=== PATIENT | female | born 1930 | race Caucasian/White ===

== ENCOUNTER 2017-01-06 13:40 | Emergency (ER) | payer MEDICARE ==
[2017-01-06] MEDS ORDERED: DIPHTH,PERTUSS(ACELL),TET VAC 0.5 ML VIAL IM ONE ×2 (14:04→14:47)
--- NOTE | 2017-01-06 15:00 | ERNOTE ---
Upper Extremity HPI - Narrative Date of Service: 01/06/17 - General Extremities Pain Location: elbow: left Time Seen by Provider: 01/06/17 13:47 Source: patient Exam Limitations: no limitations - Immun/Allergies/Home Medications Immunizations: IMMUNIZATION HX Immunizations Up to Date Yes History of Influenza Vaccine Yes Hx Pneumococcal Vaccination Yes Allergies/Adverse Reactions: Allergies Allergy/AdvReac Type Severity Reaction Status Date / Time acetaminophen Allergy Verified 01/06/17 13:52 [From Darvocet-N 100] ciprofloxacin [From Cipro] Allergy Verified 01/06/17 13:52 ciprofloxacin HCl Allergy Verified 01/06/17 13:52 [From Cipro] propoxyphene napsylate Allergy Verified 01/06/17 13:52 [From Darvocet-N 100] quinidine Allergy Verified 01/06/17 13:52 Sulfa (Sulfonamide Allergy Verified 01/06/17 13:52 Antibiotics) Home Medications: HOME MEDICATIONS Alendronate Sodium 35 mg PO Q7D 10/07/15 [Last Taken 10/05/15] Ascorbic Acid [Vitamin C] 500 mg PO DAILY 10/07/15 [Last Taken Unknown] Aspirin 81 mg PO DAILY 10/07/15 [Last Taken Unknown] Atorvastatin Calcium [Lipitor] 10 mg PO DAILY 10/07/15 [Last Taken Unknown] Calcium Carbonate/Vitamin D3 [Caltrate 600 Plus D3 Tablet] 1 each PO BID [Last Taken Unknown] Clobetasol Propionate/Emoll [Clobetasol Emollient 0.05% Crm] 1 appl TP BID 10/06 [Last Taken Unknown] Estradiol [Estrace] 42.5 gm VG Q7D 10/07/15 [Last Taken 10/02/15] L.acidoph,Paracasei, B.lactis [Probiotic] 1 each PO DAILY 10/07/15 [Last Taken Unknown] Multivitamin [Poly-Vitamin] 1 each PO DAILY 10/07/15 [Last Taken Unknown] Olmesartan Medoxomil [Benicar] 40 mg PO DAILY 10/07/15 [Last Taken Unknown] Methenamine Hippurate 01/06/17 [Last Taken Unknown] - History of Present Illness Narrative: patient presents for left elbow injury. She relates that she got up and tripped on the leg of a chair. She fell forward primatily landing on her left elbow but also her lef tknee and hit the right front of her head. No LOC. No syncope. Pain primarily left elbow with swelling. Some mild anterior left knee pain and mild FRANKS. No neck or back pain. No N/T/W. pain mild right now. No CP or SOB. No abdominal injury. No hip pain. Occurred: just prior to arrival Location of Incident: home Severity: mild Method of Injury: Reports: fell Reason for Fall: Reports: tripped Loss of Consciousness: Reports: no loss of consciousness Modifying Factors - (Improves): Reports: rest Associated Symptoms: Denies: tingling, weakness, numbness distally, loss of feeling, loss of power (lt arm) Other Injuries: Reports: head. Denies: face, neck, back, chest, abdomen Prior Treament: Denies: recently seen Review of Systems - Review of Systems Constitutional: Absent: fever Respiratory: Absent: shortness of breath Cardiology: Absent: chest pain Gastrointestinal/Abdominal: Absent: abdominal pain Neurological: Absent: weakness - Patient's Past Medical History Patient History - Medical: Osteoarthritis, Osteoporosis, UTI'S, Other Patient History - Cardiac/Respiratory: Hypertension, Hyperlipidemia Patient History - Cancer: No Hx of Cancer Patient History - Surgical Procedures: Appendectomy, Hysterectomy, T & A - Family History Brother Family History - Cardiac/Respiratory: Angina Mother Family History - Medical: Diabetes Type 2 Family History - Cardiac/Respiratory: Myocardial Infarction Sister Family History - Cardiac/Respiratory: Myocardial Infarction - Social History Living Situations: home Psych History: No pertinent hx Smoking Status: Former smoker - Immunizations Immunizations Up to Date: Yes Hx Pneumococcal Vaccination: Yes History of Influenza Vaccine: Yes Physical Exam - Physical Exam General Appearance: Present: alert, no apparent distress Head Exam: Present: other - hematoma right frontal, fairly large.. Absent: Kincaid's Sign, raccoon eyes Eye Exam: Normal inspection: bilateral, PERRL: bilateral Ears, Nose, Throat: Present: normal ENT inspection, other - no facial injury Neck: Present: normal inspection, nontender, other - no posterior C-spine tenderness. no T/L spine tenderness. Absent: tender posterior midline Respiratory: Present: no respiratory distress, normal breath sounds, lungs clear Cardiovascular/Chest: Present: regular rate, rhythm, normal peripheral pulses, other - strong pulses distal to injury Gastrointestinal/Abdominal: Present: normal bowel sounds, nondistended, soft. Absent: tenderness Back Exam: Present: normal inspection, no vertebral tenderness Extremity Exam: Present: other - Left olecranon swelling. Minimal abrasion. No laceration. Tenderness olecranon. NNo shoulder or wrist tendenress. ROM within normal limits. No dislocation or radial head tenderness. Left knee abrasion but full ROM. No clear patellar tendon injury. No hip or ankle tenderness. Neurological Exam: Present: alert, normal mood/affect, no motor/sensory deficits Skin Exam: Present: normal color, warm/dry ED Progress - Vital Signs Patient's Vital Signs:: I have reviewed the patient's vital signs. Vital Signs: Vital Signs 01/06/17 13:48 Temperature 36.9 C Pulse Rate 89 Respiratory 18 Rate Blood Pressure 180/100 O2 Sat by Pulse 93 Oximetry - X-Ray X-Ray #1 X-Ray: elbow Interpretation: Interp. by me X-ray Comments: I reviewed official radiology report X-Ray #2 X-Ray: knee Interpretation: Interp. by me X-ray Comments: I reviewed official radiology report - CT/Ultrasound CT/Ultrasound Narrative: I reviewed official radiology HCT report - Progress/Reassessment Chief Complaint: Upper Extremity Injury/Problem Progress Note-Subjective: 01/06/17 14:56 I discussed results with the patient. Sling left elbow. F/U appt with ortho made for 3 days. No compartment syndrome, no neuro vascular deficit. no other life threats identified. I discussed warning signs and reasons to return as well as the need for close f/u. 01/06/17 15:00 No hip tenderness identified. Gait stable. Departure Clinical Impression: Fall, Head injury, Elbow injury, Knee injury - Departure Disposition: Home self-care Condition: Stable Instructions: Musculoskeletal Pain Additional Instructions: Rest. Ice. Sling as directed. You have an appointment with Orthopedics on January 09 at 2:30pm. Return for increased pain, signs of infection, numbness , tingling, weakness or if your condition worsens or changes in any way. Referrals: Melonie Sims MD [Primary Care Provider] -
[2017-01-06 15:15] VITALS: BP 189/96
== END 2017-01-06 15:00 | disposition home or self-care (01) ==
LOC: ER 13:40
DX: S09.90XA Unspecified injury of head, initial encounter (principal); S59.902A Unspecified injury of left elbow, initial encounter; S89.92XA Unspecified injury of left lower leg, initial encounter; W18.09XA Striking against other object with subsequent fall, initial encounter; Y92.009 Unspecified place in unspecified non-institutional (private) residence as the place of occurrence of the external cause; M19.90 Unspecified osteoarthritis, unspecified site; I10 Essential (primary) hypertension; E78.5 Hyperlipidemia, unspecified; Z23 Encounter for immunization; S80.212A Abrasion, left knee, initial encounter

== ENCOUNTER 2017-11-21 06:26 | Inpatient (IN) | payer MEDICARE ==
--- NOTE | 2017-11-01 10:03 | ANES ---
Anesthesia Pre Procedure Eval HOME MEDICATIONS Ascorbic Acid [Vitamin C] 500 mg PO DAILY 10/07/15 [Last Taken Unknown] Aspirin 81 mg PO DAILY 10/07/15 [Last Taken Unknown] Atorvastatin Calcium [Lipitor] 10 mg PO DAILY 10/07/15 [Last Taken Unknown] L.acidoph,Paracasei, B.lactis [Probiotic] 1 ea PO DAILY 10/07/15 [Last Taken Unknown] acetaminophen 500 mg tablet 500 mg PO Q6H PRN 10/06/17 [Last Taken Unknown] alendronate 35 mg tablet 35 mg PO QWEEK tab 10/06/17 [Last Taken Unknown] estradiol 0.01% (0.1 mg/gram) vaginal cream 1 g VG QWEEK 10/06/17 [Last Taken Unknown] methenamine hippurate 1 gram tablet 1 g PO BID 10/06/17 [Last Taken Unknown] multivitamin tablet 1 tab PO DAILY 10/06/17 [Last Taken Unknown] olmesartan 40 mg tablet 40 mg PO DAILY 10/06/17 [Last Taken Unknown] Allergies/Adverse Reactions: Allergies Allergy/AdvReac Type Severity Reaction Status Date / Time sulfamethoxazole Allergy Unknown hives Verified 11/01/17 08:59 [From Bactrim] facial swelling Tetracyclines Allergy Unknown GI upset Verified 11/01/17 08:59 ciprofloxacin [From Cipro] Allergy Verified 11/01/17 08:59 ciprofloxacin HCl Allergy Verified 11/01/17 08:59 [From Cipro] hydrocodone [From Vicodin] Allergy heart races Verified 11/01/17 08:59 propoxyphene napsylate Allergy Verified 11/01/17 08:59 [From Darvocet-N 100] quinidine Allergy Verified 11/01/17 08:59 levofloxacin [From Levaquin] AdvReac Unknown nausea Verified 11/01/17 08:59 nitrofurantoin AdvReac Unknown stomach Verified 11/01/17 08:59 upset - Planned Procedure Planned Procedure: Left Total Knee Arthroplasty Medication List Reviewed:: Yes Allergies Verified: Yes Medical History (Last Reviewed 11/01/17 @ 09:58 by Long Kerns CRNA) Does not use tobacco Lives with spouse No history of alcohol use Mitral valve prolapse Onset Date: Unknown Colitis, chronic, ulcerative Onset Date: ~1978 Eczema Onset Date: Unknown Essential hypertension Onset Date: ~09/11/12 Hyperlipidemia Onset Date: ~12/18/13 Knee pain Onset Date: Unknown Osteoarthritis, knee Onset Date: Unknown Osteoporosis Onset Date: Unknown Spinal stenosis Onset Date: ~2008 Cystocele Onset Date: Unknown Kidney stone Onset Date: Unknown Left elbow pain Onset Date: Unknown Olecranon bursitis of left elbow Onset Date: ~01/06/17 Unspecified genital prolapse Onset Date: ~07/24/15 Urinary tract infection Onset Date: ~04/03/13 Surgical History (Last Reviewed 11/01/17 @ 10:00 by Long Kerns CRNA) History of appendectomy Onset Date: ~10/01/93 History of bladder surgery Onset Date: ~2003 History of colonoscopy Onset Date: Unknown History of cystoscopy Onset Date: ~05/28/13 History of sigmoidoscopy Onset Date: Unknown Hx of tonsillectomy Onset Date: Unknown S/P ARISTIDES-BSO (total abdominal hysterectomy and bilateral salpingo-oophorectomy) Onset Date: ~10/01/93 Family History (Last Reviewed 11/01/17 @ 10:00 by Long Kerns CRNA) Brother Heart disease Daughter Alive and well Father Multiple sclerosis Mother Diabetes Heart disease Dementia Sister Cancer Multiple sclerosis Son Alive and well - Family Anesthesia History Family History:: no untoward family reactions to anesthesia, no familial bleeding tendencies, no family history of clotting disorders, no family history of premature - Airway/Neck/Teeth Within Normal Limits:: Yes Teeth Condition: Intact Neck Exam: non-tender, full range of motion, normal alignment Mallampatti Score: 2 Thyromental (T-M) distance: > 6 cm Mandibulo Hyoid distance: > 3 cm - Respiratory Respiratory: chest non-tender, lungs clear, normal breath sounds, no respiratory distress Smoking Status: Former smoker Sleep Apnea currently treated: No Sleep Apnea by current assessment: No - Cardiovascular Patient History - Cardiac/Respiratory: Hypertension, Hyperlipidemia Tolerates Activity: Fair Heart Sounds: S1 & S2, Irregular, Murmur - Anesthesia Assessment and Plan ASA Class: PS, III Anesthesia Type Plan: Block - Adductor canal block for post op pain relief, Spinal Planned difficult intubation/equipment available: No
[~2017-11-21 06:26] MED LIST: ROPIVACAINE HCL/PF 100 MG, EPINEPHrine 0.2 MG, KETOROLAC TROMETHAMINE 30 MG in NORMAL S... IJ PRN; TRANEXAMIC ACID 1,000 MG in NORMAL SALINE 100 ML IV PRN; ceFAZolin SODIUM 1 GM VIAL IV PRN
[2017-11-21] MEDS: RINGER'S SOLUTION,LACTATED 1,000 ML IV PRN ×2 (07:06→09:00)
[2017-11-21] MEDS ORDERED: MAG HYDROX/ALUMINUM HYD/SIMETH 30 ML UDC PO PRN (10:16)
[2017-11-21] MEDS ORDERED: ONDANSETRON HCL/PF 2 MG/ML VIAL IV PRN (10:16)
[2017-11-21] MEDS ORDERED: MAGNESIUM HYDROXIDE 30 ML UDC PO PRN (10:16)
[2017-11-21] MEDS ORDERED: MORPHINE SULFATE 2 MG/ML DISP.SYRIN IV PRN (10:16)
[2017-11-21] MEDS ORDERED: oxyCODONE HCL/ACETAMINOPHEN 1 TAB TABLET PO PRN (10:18)
[2017-11-21] MEDS ORDERED: NORMAL SALINE 1,000 ML IV PRN (10:19)
--- NOTE | 2017-11-21 10:21 | ANES ---
Anesthesia Procedure Note Procedure Note: ANESTHESIA PROCEDURE NOTE Date of Procedure: 11/21/2017 Time of procedure: 10 04. Performed by: ZACHARIAH Anderson CRNA, MSN Body Worker: Luana Ling RN. Preprocedure diagnosis: Total knee arthroplasty. Post procedure diagnosis: Same. Procedure: Left Adductor Canal Block. Indications: Post left total knee arthroplasty pain relief. Findings: See below. Details of the procedure: The patient was brought to OR #4 and placed in supine position. The patient's left femoral area to the knee was prepped with chlorhexidine and using ultrasound guidance the left femoral artery and nerve was identified and then followed to the level of the adductor canal. Lidocaine 1% was infiltrated to the skin of the intended injection site. Under ultrasound guidance the saphenous nerve was approached with visualization of a 4 inch shielded block needle. Once saphenous nerve was identified with proximity to the needle tip, the saphenous nerve was surrounded with 30 mL bupivacaine 0.5% with 1-200,000 epinephrine. Please see radiology/ultrasound report for details and retained images of the procedure. EBL: 0 Fluids: N/A. Specimen: N/A. Post procedure condition: The patient tolerated the procedure well. No complications were noted. Thank you for this consultation. Long Kerns CRNA, ARNP, MSN
--- NOTE | 2017-11-21 10:22 | ANES ---
Post Anesthesia Discharge - Transfer of Care Transfer of Care handoff given to nurse: Yes - Discharge from PACU Discharge from PACU when meets criteria: Yes - Alert and comfortable.
--- NOTE | 2017-11-21 10:25 | OR ---
Operative Report - Dictated Report Narrative: Date: 11/21/2017 Preoperative diagnosis: Left knee degenerative joint disease. Postoperative diagnosis: Left knee degenerative joint disease. Procedure: Left total knee arthroplasty. Surgeon: Jacek Pacheco M.D. Continuous Dryout Operator Helper: Korey Dhillon PA-C Anesthesia: Spinal with regional block and local periarticular joint injection. Complications: None Specimens: Bone for disposal. Estimated blood loss: Minimal. Tourniquet time: 67 Minutes at 275 millimeters of mercury. Retained implants: Depuy Attune size 7 standard lugged cemented posterior stabilized femoral component. Size 5 fixed-bearing cemented tibial platform. Size 5 by 10 millimeter posterior stabilized cross-linked tibial insert. 38 millimeter medialized patella button. Indications: Jud is a 87-year-old healthy female. This patient was followed in my clinic for period of time with significant complaints of left knee pain consistent with arthritic changes. They had failed conservative measures including but not limited to activity modification, passage of time, medications , and other conservative measures. Patient wished to proceed with surgical treatment. The risks, benefits, and alternatives were discussed in clinic. The risks of , blood clots, bleeding, infection, nerve/tendon blood vessel / injury, malposition of components, intraoperative fracture, postoperative limited range of motion, persistent pain, failure of components, and need for additional procedures. Patient wished to proceed consent was obtained after answering all questions. Procedure: After marking the correct extremity on the floor, the patient was taken to the operating room. A timeout was performed. IV antibiotics consisting of 1 g of Ancef was administered prior to the procedure. A regional followed by spinal anesthetic was induced by anesthesia. on the operative table with all bony prominences well-padded. Garcia catheter was placed and a bump was placed under the operative side buttock. SCDs and DANIELLA hose were utilized on the nonoperative leg. A well-padded tourniquet was applied to the operative thigh. The operative leg was then pre-scrubbed with alcohol prepped and draped in a standard sterile fashion. After exsanguinating the extremity with an Esmarch bandage, the tourniquet was inflated. After marking out the anterior knee for standard incision centered over the patella, the skin was incised and dissected down to the joint retinaculum. The joint retinaculum was marked out as well as the horizontal axis of the patella, and a standard medial parapatellar arthrotomy was then made. The most proximal aspect of the quadriceps tendon and the patella tendon insertion were protected from release. A partial synovectomy was performed as well as a resection of the infrapatellar fat pad. The distal femoral fat pad proximal to the trochlea was also resected using cautery. The soft tissues were elevated off the medial aspect of the proximal tibia using a Guerra elevator ensuring that we did not transect the medial collateral ligament. Upon initial evaluation range of motion was approximately 0 degrees to 135 degrees of flexion. There were signs of advanced arthrosis in all 3 joint spaces. There were large marginal osteophytes which were removed with a rongeur. The knee was hyperflexed and the patella was tucked laterally. Protecting the surrounding soft tissues with Homans, an entry drill was placed down the femoral canal using Whitesides line for guidance into the entry point. The intramedullary femoral alignment ayaan was utilized in order to cut the distal femur in 5 of valgus resecting 10 millimeters of bone. Next the distal femur was sized to a size 7 standard. An anterior referencing guide was utilized to place the distal femoral cutting block in 3 of external rotation. This was pinned into place. The rotation was confirmed both visually and based on anatomic landmarks. The 4 in 1 cutting jig of the appropriate size was utilized in order to make all bony cuts. Retractors were utilized in order to protect surrounding soft tissues. This cut did not result in any excessive notching. We then cut the box centered over the distal femur. This allowed for resection of the anterior and posterior cruciate ligaments. I then turned my attention to the preparation of the tibia. Using an extra medullary tibial alignment ayaan, 2 millimeters of bone was resected off the medial articular surface. This was made perpendicular to the mechanical axis of the joint with the alignment ayaan centered over the ankle mortise. The alignment ayaan was parallel to the mechanical axis, centered over the medial one third of the tibial tubercle, paralleling the anterior surface of the tibia. We then turned our attention to the remaining meniscus and soft tissues. These were removed while protecting the surrounding ligaments and soft tissues. The marginal osteophytes off the anterior, posterior, medial, lateral aspects of the femur and tibia were removed. The tibia was sized out to a size 5. Next the tibia was drilled and punched in an externally rotated position as confirmed with a drop ayana. Next the trial femur and a series of tibial inserts were utilized in order to allow for full extension and maximal flexion. It was found that a 10 millimeter insert gave the best range of motion and stability at multiple flexion points as well as at full extension there was less than 2 mm of gapping both medially and laterally. There is minimal anterior translation with the knee at 90 of flexion and no signs of being able to dislocate the knee. The patella was then prepared. The initial thickness was 26 millimeters. This was reamed down to 15 millimeters parallel to the anterior surface of the patella. It was sized out to a size 38 mm medialized patella button. This was then drilled and trialed. Without any medial restraint the patella tracked appropriately and did not sublux or dislocate. At this point, it was felt these were the appropriate sized implants and all trials were removed. The standard periarticular joint injection consisting of ropivacaine, Toradol, and epinephrine were injected into the periarticular joint tissues. The bony surfaces were thoroughly irrigated with a pulsatile- suction saline irrigation device. A bone plug from the prior resected anterior chamfer cut was placed into the drill hole at the distal femur. The bony surfaces were then dried in preparation for placement of the implants. The cement was vacuum mixed per the senior tech manufacturing engineering's instructions. The cement was placed on the dry bony surfaces and posterior aspect of the implants. The implants were impacted into place, removing all extruded cement. At this point anesthesia administered tranexamic acid per protocol intravenously. The knee was placed in extension with axial loading with the trial insert while the cement cured. A dilute 0.35% betadyne-saline solution was used to irrigate the knee and allowed to sit in the knee while the cement cured. Once the cement cured, all remaining extruded cement was removed. The knee was placed through a range of motion with the trial insert to ensure appropriate range of motion and stability. Final range of motion was approximately 0 to 130 degrees. The knee was again thoroughly irrigated with pulsatile saline lavage. The final polyethylene insert was then impacted into place ensuring no retained soft tissues. The remaining periarticular joint injection was injected. The knee was then packed with lap sponges which were soaked with dilute betadyne solution and the tourniquet was let down. Pressure was held for approximately 2 minutes and then hemostasis was obtained using electrocautery to coagulate any bleeding vessels. The knee was then placed over a triangle and the arthrotomy was closed with interrupted #1 Vicryl after thoroughly irrigating the joint. The deep and subcutaneous tissues were closed with interrupted oh and 3-0 Vicryl respectively. Skin was closed with a running subcutaneous 3-0 Monocryl and Prineo dressing. The wound was then dressed with 4 x 4's, Sof-Rol , and a full leg Jeramy wrap. All sponge, needle, blade, and instrument counts were correct prior to closing the wounds. Postoperative condition: The patient was awoken and transferred to the postanesthesia care unit in stable condition. Plan is to be admitted to the inpatient medical/surgical floor postoperatively for 24 hours of IV antibiotics , physical therapy, occupational therapy, and medical co-management. Patient will be weightbearing as tolerated with range of motion as tolerated. DVT prophylaxis will be with SCDs, DANIELLA hose, and pharmacological anticoagulation. Anticipated hospital stay is approximately 2-4 days.
--- NOTE | 2017-11-21 12:15 | ANES ---
Post Anesthesia Assessment - Vital Signs Vitals: Last Vital Signs Temp 36.0 C 11/21/17 10:54 Pulse 80 11/21/17 10:54 Resp 16 11/21/17 10:54 BP 147/74 11/21/17 10:54 Pulse Ox 99 11/21/17 10:54 Airway Patency: Normal - Mental Status Level Of Consciousness: Awake, Alert, Appropriate - Pain Level Pain Score: 0 - N/V Assessment Nausea/Vomiting Presence: None Dehydration:: No
[2017-11-21] MEDS: ceFAZolin SODIUM 1 GM in DEXTROSE 5 % IN WATER 100 ML IV SCH ×4 (14:54→22:45)
[2017-11-21] MEDS ORDERED: LOSARTAN POTASSIUM 50 MG TABLET PO STA (15:08)
[2017-11-21] MEDS: oxyCODONE HCL/ACETAMINOPHEN 1 TAB TABLET PO PRN (17:31)
[2017-11-21] MEDS: ROSUVASTATIN CALCIUM 10 MG TABLET PO SCH (20:38)
[2017-11-21] MEDS: SENNOSIDES/DOCUSATE SODIUM 1 TAB TABLET PO SCH (20:39)
[2017-11-21] MEDS: ACETAMINOPHEN 500 MG TABLET PO PRN (20:39)
[2017-11-22] MEDS ORDERED: NORMAL SALINE 1,000 ML IV ONE (00:23)
[2017-11-22] MEDS: oxyCODONE HCL/ACETAMINOPHEN 1 TAB TABLET PO PRN ×4 (01:59→20:05)
[2017-11-22 05:33] LABS: Hematocrit 27.6 % (37.0-47.0); Hemoglobin 8.9 gm/dL (12.5-16.0); Mean Cell Volume 90.8 fl (78-100); Mean Corpuscular Hemoglobin 29.3 pg (27-31); Mean Corpuscular Hgb Conc 32.2 g/dl (32-36); Mean Platelet Volume 8.7 fl (8-12.5); Platelet Count 196 K/mm3 (150-450); Red Blood Count 3.04 M/mm3 (4.2-5.4); Red Cell Distribution Width 13.3 % (11.5-14.0); White Blood Count 7.7 K/mm3 (4.0-10.5)
[2017-11-22 05:41] LABS: Anion Gap 7.7 mmol/L (6.8-13.8); BUN/Creatinine Ratio 24.7 (9.0-21.6); Calcium * 7.7 mg/dL (7.9-10.9); Carbon Dioxide 26.3 mmol/L (24-32.6); Estimated Creat Clear 39.5
[2017-11-22] MEDS: ceFAZolin SODIUM 1 GM in DEXTROSE 5 % IN WATER 100 ML IV SCH ×2 (07:39)
--- NOTE | 2017-11-22 09:02 | PN ---
Subjective - Date and Time Seen Date: 11/22/17 Time: 08:15 Subjective Narrative: Patient reports no acute events. She states overnight her blood pressure dropped , she states this happened before. Currently she her pain is well controlled with oral pain medication. She has been up and walked around her room with assistance. Objective - Vitals Vitals: Last Vital Signs Temp 36.7 C 11/22/17 07:37 Pulse 91 11/22/17 07:37 Resp 18 11/22/17 07:37 BP 109/71 11/22/17 07:37 Pulse Ox 100 11/22/17 07:37 - Abnormal Lab Findings Abnormal Lab Findings: Abnormal Lab Results 11/22/17 11/22/17 Range/Units 05:10 05:10 RBC 3.04 L (4.2-5.4) M/mm3 Hgb 8.9 L (12.5-16.0) gm/dL Hct 27.6 L (37.0-47.0) % Sodium 128 L (132-142) mmol/L Plasma Sodium 128 L (130-142) mmol/L BUN/Creatinine Ratio 24.7 H (9.0-21.6) Random Glucose 121 H (70-110) mg/dL Calcium 7.7 L (7.9-10.9) mg/dL - Exam Constitutional: Present: Alert, Cooperative, No distress Respiratory: Present: no respiratory distress Extremity: Present: other - LLE--> bandages c/d/i, SILT, cap refill brisk, PF/ DF 5/5 Appearance: Present: appropriate appearance Eye contact: Present: cooperative Thoughts: Present: normal thought pattern Cauti Physician Documentation - Urinary Catheter Management Urethral (Garcia) Date of Insertion: 11/21/17 Time of Insertion: 07:55 Assessment/Plan Plan Narrative: -87 y/o female post-op day #1 s/p left total knee arthroplasty - WBAT with assistance PRN - PT/OT progress as tolerated - PO pain medication PRN - PO diet as tolerated - Maintain post-op bandages in place - DVT prophy: eve thomas, SCDs in bed, lovenox - Hgb 8.9 continue to monitor Dispo: Discharge home with home health once all PT goals met, pain well controlled, tolerating PO diet, and stable - Problems/Diagnosis (1) Status post total left knee replacement Problem: Acute
--- NOTE | 2017-11-22 09:22 | CONS ---
[facility] - General Date of Service: 11/22/17 Narrative: Jud Sherwood, is a 87-year-old white female, with previous medical history of hypertension, hyperlipidemia, osteoarthritis, with sedative colitis, who was referred to me for medical management of hypertension. The patient yesterday postoperatively had an elevated blood pressure of 171/75. She was not having any pain at that time. Orthopedic put a consult for internal medicine. She received an extra dose of losartan 50 mg by mouth 1. Her blood pressure normalized the rest of the day however after midnight yesterday her blood pressure went down into the 70s. She was lightheaded. Her blood pressure responded with IV boluses. This morning her blood pressure again was on the low side and her losartan was put on hold. 250 mL of 0.9 NSS IV bolus was given. As per patient and daughter she is whoozywhen she stands up and lightheaded. Her Hb is down from 12.5 preoperatively to 8.9 postoperatively. The daughter and the patient is worried that she might pass out when she gets physical therapy today. She does have a h/o syncopal episodes. Source: patient, family - History of Present Illness Allergies/Adverse Reactions: Allergies sulfamethoxazole [From Bactrim] Allergy (Unknown, Verified 11/21/17 06:52) hives facial swelling Tetracyclines Allergy (Unknown, Verified 11/21/17 06:52) GI upset hydrocodone [From Vicodin] Adverse Reaction (Intermediate, Verified 11/21/17 06: 52) heart races propoxyphene napsylate [From Darvocet-N 100] Adverse Reaction (Intermediate, Verified 11/21/17 06:52) Nausea quinidine Adverse Reaction (Intermediate, Verified 11/21/17 06:52) Nausea ciprofloxacin [From Cipro] Adverse Reaction (Mild, Verified 11/21/17 06:52) Nausea ciprofloxacin HCl [From Cipro] Adverse Reaction (Mild, Verified 11/21/17 06:52) Nausea levofloxacin [From Levaquin] Adverse Reaction (Unknown, Verified 11/21/17 06:52) nausea nitrofurantoin Adverse Reaction (Unknown, Verified 11/21/17 06:52) stomach upset Home Medications: Home Medications Medication Instructions Recorded Last Taken Ascorbic Acid [Vitamin C] 500 mg PO DAILY 10/07/15 Unknown Aspirin 81 mg PO DAILY 10/07/15 11/14/17 Atorvastatin Calcium [Lipitor] 10 mg PO DAILY 10/07/15 Unknown L.acidoph,Paracasei, B.lactis 1 ea PO DAILY 10/07/15 Unknown [Probiotic] acetaminophen 500 mg tablet 500 mg PO Q6H PRN 10/06/17 Unknown estradiol 0.01% (0.1 mg/gram) 1 g VG QWEEK 10/06/17 Unknown vaginal cream methenamine hippurate 1 gram tablet 1 g PO BID 10/06/17 Unknown multivitamin tablet 1 tab PO DAILY 10/06/17 Unknown olmesartan 40 mg tablet 40 mg PO DAILY 10/06/17 Unknown alendronate 35 mg tablet 35 mg PO QWEEK #4 tab 11/15/17 Unknown Procedures Arthrocentesis (08/20/06) Injection of anesthetic into spinal canal for analgesia (08/08/08) Injection of other agent into spinal canal (08/08/08) Injection of steroid (08/08/08) Insertion of intraocular lens prosthesis at time of cataract extraction, one- stage (07/11/11) Other cystoscopy (01/12/11) Phacoemulsification and aspiration of cataract (07/11/11) Medications - Medications Current Medications: Current Medications Acetaminophen (Tylenol) 1,000 mg PO Q6H PRN PRN Reason: Mild pain (pain scale 1-3) Stop: 12/21/17 10:17 Last Admin: 11/21/17 20:39 Dose: 1,000 mg Sodium Chloride (Sodium Chloride 0.9%) 1,000 mls @ 100 mls/hr IV .Q10H PRN PRN Reason: HYDRATION Stop: 12/21/17 10:20 Last Infusion: 11/21/17 13:24 Dose: 0 mls/hr Oxycodone/Acetaminophen (Percocet 5 Mg/325 Mg) 1 tab PO Q4H PRN PRN Reason: Moderate Pain (pain scale 4-6) Stop: 12/21/17 10:17 Last Admin: 11/22/17 01:59 Dose: 1 tab Rosuvastatin Calcium (Crestor) 5 mg PO HS ROCIO Stop: 12/21/17 21:01 Last Admin: 11/21/17 20:38 Dose: 5 mg Senna/Docusate Sodium (Senokot-S) 2 tab PO HS ROCIO Stop: 12/21/17 21:01 Last Admin: 11/21/17 20:39 Dose: Not Given Review of Systems - Review of Systems Generalized/Overall Review: Absent: Weakness, Chills, Fever EENTM: Absent: Blurred Vision Respiratory: Absent: Cough, Shortness of Breath Cardiac: Absent: Chest Pain, Edema, Palpitations Abdominal: Absent: Nausea, Vomiting, Abdominal Pain Genitourinary: Absent: Urgency, Frequency Musculoskeletal: Present: Joint Pain Physical Examination - Exam Vital Signs: Vital Signs - Last Taken Temp 36.7 C 11/22/17 07:37 Pulse 91 11/22/17 07:37 Resp 18 11/22/17 07:37 BP 109/71 11/22/17 07:37 Pulse Ox 100 11/22/17 07:37 O2 Oxygen Delivery Method Room Air Constitutional: Present: Alert, Oriented x3, Cooperative, Elderly ENT Exam: Present: hearing grossly normal Eye Exam: bilateral eye: normal inspection, PERRL, EOMI Neck: Present: supple Respiratory: Present: lungs clear, No rales, No wheezing Cardiovascular/Chest: Present: regular rate, rhythm, no JVD, no murmur Abdomen: Present: Normal bowel sounds, soft, nontender, nondistended Extremity: Present: no pedal edema, no calf tenderness - Results and Findings: Lab/Microbiology results last 24 hrs: Abnormal/Pending Laboratory Last 24 HRS 11/22/17 11/22/17 05:10 05:10 RBC 3.04 L Hgb 8.9 L Hct 27.6 L Sodium 128 L Plasma Sodium 128 L BUN/Creatinine Ratio 24.7 H Random Glucose 121 H Calcium 7.7 L - Assessments/Findings (1) Status post total left knee replacement Diagnosis(s): POD # 1. continue with PT/OT , anticoagulation. Problem: Acute (2) Acute blood loss anemia Diagnosis(s): has lightheadedness and whooziness. will do orthostatic VS. will continue to monitor. Problem: Acute (3) Hypertension Diagnosis(s): had initial elevated blood pressure yesterday afternoon and was given an extra dose of losartan. she had episodes of hypotension last night and this morning. IVF boluses given and BP med held. Problem: Chronic Qualifiers: Hypertension type: essential hypertension Qualified Code(s): I10 - Essential (primary) hypertension (4) Hyperlipidemia Problem: Chronic Qualifiers: Hyperlipidemia type: mixed hyperlipidemia Qualified Code(s): E78.2 - Mixed hyperlipidemia
[2017-11-22] MEDS: ENOXAPARIN SODIUM 40 MG/0.4 ML SYRG SC SCH (09:44)
[2017-11-22] MEDS: LOSARTAN POTASSIUM 50 MG TABLET PO SCH (09:45)
[2017-11-22] MEDS: ASCORBIC ACID 500 MG TABLET PO SCH (09:45)
[2017-11-22] MEDS: ROSUVASTATIN CALCIUM 10 MG TABLET PO SCH (20:05)
[2017-11-22] MEDS: SENNOSIDES/DOCUSATE SODIUM 1 TAB TABLET PO SCH (20:05)
[2017-11-23] MEDS: oxyCODONE HCL/ACETAMINOPHEN 1 TAB TABLET PO PRN ×2 (00:43→22:58)
[2017-11-23 05:22] LABS: Hematocrit 27.1 % (37.0-47.0); Mean Cell Volume 89.7 fl (78-100); Mean Corpuscular Hemoglobin 29.8 pg (27-31); Mean Corpuscular Hgb Conc 33.2 g/dl (32-36); Platelet Count 185 K/mm3 (150-450); Red Blood Count 3.02 M/mm3 (4.2-5.4); Red Cell Distribution Width 13.3 % (11.5-14.0); White Blood Count 6.9 K/mm3 (4.0-10.5)
[2017-11-23 05:24] LABS: Anion Gap 7.6 mmol/L (6.8-13.8); BUN/Creatinine Ratio 17.1 (9.0-21.6); Calcium * 7.9 mg/dL (7.9-10.9); Carbon Dioxide 27.5 mmol/L (24-32.6); Estimated Creat Clear 42.8; Potassium 4.1 mmol/L (3.4-4.6)
[2017-11-23] MEDS: LOSARTAN POTASSIUM 50 MG TABLET PO SCH (09:21)
[2017-11-23] MEDS: ASCORBIC ACID 500 MG TABLET PO SCH (09:21)
[2017-11-23] MEDS: ENOXAPARIN SODIUM 40 MG/0.4 ML SYRG SC SCH (09:21)
--- NOTE | 2017-11-23 09:22 | PN ---
Subjective - Date and Time Seen Date: 11/23/17 Time: 09:12 Subjective Narrative: Worked will with PT/OT and did the steps but she got dizzy and had to sit down. Her Na is down to 126. Had 2 Liters if LR and about 1 liter of NSS . Objective - Review of Systems Generalized/Overall Review: Reports: Fatigue. Denies: Chills, Fever Respiratory: Denies: Cough, Shortness of Breath Cardiac: Denies: Chest Pain, Edema, Palpitations Abdominal: Denies: Nausea, Vomiting Genitourinary Symptoms: Reports: Frequency, Hesitancy Musculoskeletal Complaints: Reports: Joint Pain - controlled Neurological: Reports: Other - lightheaded - Vitals Vitals: Last Vital Signs Temp 36.5 C 11/23/17 04:40 Pulse 76 11/23/17 04:40 Resp 18 11/23/17 04:40 BP 133/84 11/23/17 04:40 Pulse Ox 97 11/23/17 04:40 - Abnormal Lab Findings Abnormal Lab Findings: Abnormal Lab Results 11/23/17 11/23/17 Range/Units 05:10 05:10 RBC 3.02 L (4.2-5.4) M/mm3 Hgb 9.0 L (12.5-16.0) gm/dL Hct 27.1 L (37.0-47.0) % Sodium 126 L (132-142) mmol/L Plasma Sodium 126 L (130-142) mmol/L Chloride 95 L (97-106) mmol/L Random Glucose 113 H (70-110) mg/dL - Exam Constitutional: Present: Alert, Oriented x3, Cooperative, Elderly ENT Exam: Present: hearing grossly normal Neck: Present: supple Respiratory: Present: decreased breath sounds, No rales, No wheezing Cardiovascular/Chest: Present: regular rate, rhythm, no JVD, no murmur Abdomen: Present: Normal bowel sounds, soft, nontender, nondistended Extremity: Present: no pedal edema, no calf tenderness Neurologic: Present: medical transcription supervisor II-XII nml as tested, no motor/sensory deficits, oriented x 3 Cauti Physician Documentation - Urinary Catheter Management Urethral (Garcia) Date of Insertion: 11/21/17 Time of Insertion: 07:55 Date of Removal: 11/22/17 Time of Removal: 07:00 Assessment/Plan - Problems/Diagnosis (1) Hyponatremia Problem: Acute Narrative: euvolemic hyponatremia likely due to SIADH vs dilutional. will get urine for Na. (2) Status post total left knee replacement Problem: Acute Narrative: POD # 3. continue PT/OT (3) Acute blood loss anemia Problem: Acute Narrative: Hb is up to 9 (4) Hypertension Problem: Chronic Qualifiers: Hypertension type: essential hypertension Qualified Code(s): I10 - Essential (primary) hypertension (5) Hyperlipidemia Problem: Chronic Qualifiers: Hyperlipidemia type: mixed hyperlipidemia Qualified Code(s): E78.2 - Mixed hyperlipidemia (6) Increased urinary frequency Problem: Acute Narrative: r/o UTI. will get UA and UCS if warranted.
[2017-11-23 11:28] LABS: Urine Bilirubin Negative (NEGATIVE); Urine Blood Negative /ul (NEGATIVE); Urine Ketone Negative (NEGATIVE); Urine Nitrite Negative (NEGATIVE); Urine Protein Negative (NEGATIVE); Urine Urobilinogen Normal (NORMAL); Urine pH 6.5 pH (5.0-7.0)
[2017-11-23 11:49] LABS: Urine Appearance Clear (CLEAR); Urine Color Yellow
[2017-11-23 11:50] LABS: Urine Bacteria TRACE; Urine RBC TRACE /hpf (0-5); Urine WBC TRACE /hpf (0-5)
[2017-11-23] MEDS: ACETAMINOPHEN 500 MG TABLET PO PRN (14:12)
--- NOTE | 2017-11-23 15:09 | PN ---
Subjective - Date and Time Seen Date: 11/23/17 Time: 07:15 Subjective Narrative: Patient reports no acute events. She has felt mildly dizzy with PT when up and walking today. Her pain is well controlled with PO pain medication. Objective - Vitals Vitals: Last Vital Signs Temp 37.1 C 11/23/17 10:35 Pulse 96 11/23/17 10:35 Resp 14 11/23/17 10:35 BP 142/52 11/23/17 10:35 Pulse Ox 99 11/23/17 10:35 - Abnormal Lab Findings Abnormal Lab Findings: Abnormal Lab Results 11/23/17 11/23/17 11/23/17 Range/Units 05:10 05:10 10:30 RBC 3.02 L (4.2-5.4) M/mm3 Hgb 9.0 L (12.5-16.0) gm/dL Hct 27.1 L (37.0-47.0) % Sodium 126 L (132-142) mmol/L Plasma Sodium 126 L (130-142) mmol/L Chloride 95 L (97-106) mmol/L Random Glucose 113 H (70-110) mg/dL Urine WBC Trace H (0-5) /hpf - Exam Constitutional: Present: Alert, Cooperative, No distress Respiratory: Present: no respiratory distress Extremity: Present: other - RLE--> Bandages removed, incision no erythema or drainage, SILT, dorsal pedis pulse 2+, 5/5 PF/DF, mild edema diffusely about knee Eye contact: Present: cooperative Thoughts: Present: normal thought pattern Cauti Physician Documentation - Urinary Catheter Management Urethral (Garcia) Date of Insertion: 11/21/17 Time of Insertion: 07:55 Date of Removal: 11/22/17 Time of Removal: 07:00 Assessment/Plan Plan Narrative: -87 y/o female post-op day #2 s/p left total knee arthroplasty - WBAT with assistance PRN - PT/OT progress as tolerated - PO pain medication PRN - PO diet as tolerated - Maintain post-op bandages in place - DVT prophy: Si[place]han rivers in bed, lovenox Dispo: Discharge home with outpatient PT - Problems/Diagnosis (1) Status post total left knee replacement Problem: Acute
[2017-11-23] MEDS ORDERED: NORMAL SALINE 1,000 ML IV ONE (15:21)
[2017-11-23] MEDS: ROSUVASTATIN CALCIUM 10 MG TABLET PO SCH (20:47)
[2017-11-23] MEDS: SENNOSIDES/DOCUSATE SODIUM 1 TAB TABLET PO SCH (20:48)
[2017-11-24 05:40] LABS: Anion Gap 5.4 mmol/L (6.8-13.8); BUN/Creatinine Ratio 20.3 (9.0-21.6); Calcium * 8.2 mg/dL (7.9-10.9); Carbon Dioxide 28.4 mmol/L (24-32.6); Estimated Creat Clear 44.5; Potassium 3.8 mmol/L (3.4-4.6)
[2017-11-24] MEDS: LOSARTAN POTASSIUM 50 MG TABLET PO SCH (08:00)
[2017-11-24] MEDS: ASCORBIC ACID 500 MG TABLET PO SCH (08:00)
--- NOTE | 2017-11-24 08:52 | DS ---
(1) Status post total left knee replacement Problem: Acute Description of Stay: Jud was admitted status post left total knee replacement on 11/21/2017. She was admitted for monitoring, postop pain control, PT/OT. Her surgery was uncomplicated with Dr. Pacheco. Since surgery she has tolerated p.o. diet, her pain is well controlled with oral pain medication. She was noted to have a sodium of 126, it was treated with a bolus dose of normal saline, repeat labs reveal sodium at 130, asymptomatic at this time. She has been advancing with physical therapy with increasing ambulation with a walker and assistance. Bandages were removed, there is no erythema or drainage from dressing. Discussed continued use of the Lovenox for 10 days total, followed by 325 mg of aspirin daily for 6 weeks. She will follow-up in 2 weeks in the orthopedic outpatient office. She will call with any acute changes or questions. -Weightbearing as tolerated -Outpatient PT/OT progress as tolerated -P.o. diet as tolerated -P.o. pain medication as needed Procedures Performed: see notes below List Procedures: left total knee replacement Results and Findings: Lab Pending Results 11/22/17 05:10: WBC 7.7, RBC 3.04 L, Hgb 8.9 L, Hct 27.6 L, MCV 90.8, MCH 29.3, MCHC 32.2, RDW 13.3, Plt Count 196, MPV 8.7 11/22/17 05:10: Sodium 128 L, Plasma Sodium 128 L, Potassium 4.0, Chloride 98, Carbon Dioxide 26.3, Anion Gap 7.7, BUN 22, Creatinine 0.89, Est GFR (Non-Af Amer) 64, BUN/Creatinine Ratio 24.7 H, Random Glucose 121 H, Calcium 7.7 L 11/23/17 05:10: WBC 6.9, RBC 3.02 L, Hgb 9.0 L, Hct 27.1 L, MCV 89.7, MCH 29.8, MCHC 33.2, RDW 13.3, Plt Count 185, MPV 9.0 11/23/17 05:10: Sodium 126 L, Plasma Sodium 126 L, Potassium 4.1, Chloride 95 L , Carbon Dioxide 27.5, Anion Gap 7.6, BUN 14, Creatinine 0.82, Est GFR (Non-Af Amer) 70, BUN/Creatinine Ratio 17.1, Random Glucose 113 H, Calcium 7.9 11/23/17 10:30: Urine Color Yellow, Urine Appearance Clear, Urine pH 6.5, Ur Specific [place] 1.010, Urine Protein Negative, Urine Glucose (UA) Negative, Urine Ketones Negative, Urine Blood Negative, Urine Nitrate Negative, Urine Bilirubin Negative, Urine Urobilinogen Normal, Ur Leukocyte Esterase Negative, Urine RBC Trace, Urine WBC Trace H, Ur Epithelial Cells 0-5, Urine Bacteria Trace, Urine Culture Comments No culture indicated 11/23/17 10:31: Ur Random Sodium 33 11/24/17 05:30: Sodium 130 L, Plasma Sodium 130, Potassium 3.8, Chloride 100, Carbon Dioxide 28.4, Anion Gap 5.4 L, BUN 16, Creatinine 0.79, Est GFR (Non-Af Amer) 73, BUN/Creatinine Ratio 20.3, Random Glucose 92, Calcium 8.2 Discharge Location: Home Disposition: Home self-care Condition: Good Discharge Activity: Activity as tolerated, Weight bearing Discharge Diet: General/regular food Referrals: Melonie Sims MD [Primary Care Provider] - Problem Oriented Discharge Instructions to Patient/Family: Total Knee Replacement, Care After, [id number] Language (Marshallese or Slovak Available): Marshallese Additional Patient Instructions (free text): Follow appointment with Orthopedics Dr Pacheco on Monday12/06/17 at 9:30am Follow up outpatient Physical Therapy at [facility] outpatient Rehab on Monday at 1:15pm. Prescriptions (Any new or edited meds): Enoxaparin Sodium [Lovenox] 40 mg SC Q24H #7 disp.syrin oxyCODONE HCL/ACETAMINOPHEN [Percocet 5 MG/325 MG] 1 - 2 tab PO Q4H PRN #60 tab PRN Reason: Severe Pain (Pain Scale 7-10) Complete Home Medications List: Complete Home Medication List: Ascorbic Acid [Vitamin C] 500 mg PO DAILY 10/07/15 Aspirin 81 mg PO DAILY 10/07/15 Atorvastatin Calcium [Lipitor] 10 mg PO DAILY 10/07/15 L.acidoph,Paracasei, B.lactis [Probiotic] 1 ea PO DAILY 10/07/15 acetaminophen 500 mg tablet 500 mg PO Q6H PRN 10/06/17 estradiol 0.01% (0.1 mg/gram) vaginal cream 1 g VG QWEEK 10/06/17 methenamine hippurate 1 gram tablet 1 g PO BID 10/06/17 multivitamin tablet 1 tab PO DAILY 10/06/17 olmesartan 40 mg tablet 40 mg PO DAILY 10/06/17 alendronate 35 mg tablet 35 mg PO QWEEK #4 tab 11/15/17 Enoxaparin Sodium [Lovenox] 40 mg SC Q24H #7 disp.syrin 11/24/17 Sennosides/Docusate Sodium [Senokot-S] 2 tab PO HS tablet 11/24/17 oxyCODONE HCL/ACETAMINOPHEN [Percocet 5 MG/325 MG] 1 - 2 tab PO Q4H PRN #60 tab 11/24/17 Amb Orders for Discharge: PT Evaluation and Treatment* Location: None Selected
[2017-11-24] MEDS: ENOXAPARIN SODIUM 40 MG/0.4 ML SYRG SC SCH (09:08)
[2017-11-24 09:14] VITALS: BP 140/76
== END 2017-11-24 10:30 | disposition home or self-care (01) | DRG 470 ==
LOC: MS 06:26 → EDSTATUS 08:00
PROVIDERS: ADMIT Orthopaedic Surgery; ATTEND Internal Medicine
CPT/HCPCS: 36415; 73560; 80048; 81001; 83930; 83935; 84300; 85027; 97110; 97116; 97161; 97165; 97530; 97535